=== PATIENT | male | born 1985 | race Caucasian/White ===

== ENCOUNTER 2018-06-24 08:30 | Emergency (ER) | payer OTHER ==
[~2018-06-24] VITALS: Ht 180.3 cm; Wt 90.0 kg
[2018-06-24 10:46] VITALS: BP 121/55
== END 2018-06-24 10:47 | disposition home or self-care (01) ==
LOC: ER 08:45
DX: L55.0 Sunburn of first degree (principal); F17.200 Nicotine dependence, unspecified, uncomplicated; Z88.8 Allergy status to other drugs, medicaments and biological substances
CPT/HCPCS: 99283